=== PATIENT | female | born 1955 | race African-American/Black ===

== ENCOUNTER 2018-05-04 00:05 | Inpatient (IN) | payer MEDICARE ==
[2018-05-04] VITALS (7 sets, daily range): BP systolic 112–144; BP diastolic 63–80; Ht 165.1 cm; Wt 51.7 kg
[~2018-05-04] VITALS: Ht 165.1 cm; Wt 51.7 kg
[2018-05-04] MEDS ORDERED: TYLENOL W/CODEI1 TAB PO (04:50)
[2018-05-04] MEDS ORDERED: MYCOLOG CREAM15 GM TOPICAL (04:51)
[2018-05-04] MEDS ORDERED: ISOSORBIDE MONO30 M1 PO (04:51)
[2018-05-04] MEDS ORDERED: XANAX1 MG PO (04:53)
[2018-05-04] MEDS ORDERED: NORVASC10 MG PO (04:54)
[2018-05-04] MEDS ORDERED: PHENERGAN DM SYR5 ML PO (04:54)
[2018-05-04] MEDS ORDERED: LOPRESSOR25 MG PO (04:55)
[2018-05-04] MEDS ORDERED: CATAPRES0.2 MG PO (04:56)
[2018-05-04] MEDS ORDERED: SENNA8.6 MG PO (04:56)
[2018-05-04] MEDS ORDERED: MEGACE40 MG PO (04:57)
[2018-05-04] MEDS ORDERED: NORCO 10-325 TA1 TAB PO (04:58)
[2018-05-04 06:15] LABS: BASOPHILS 0.1 % (0-2); EOSINOPHILS 0.1 % (0-7); HEMATOCRIT 27.5 % (36.0-48.0); IMMATURE GRANULOCYTES 0.7 % (0-5); LYMPHOCYTES 2.2 % (15-50); MCH 29.4 pg (26.0-34.0); MCHC 32.7 g/dL (31.0-37.0); MCV 89.9 fL (80.0-100.0); MEAN PLATELET VOLUME 11.7 fL (7.4-10.4); MONOCYTES 3.8 % (2-11); NEUTROPHILS 93.1 % (40-80); PLATELET COUNT 193 10x3/uL (130-400); RBC 3.06 10x6/uL (4.00-5.40); RDW 17.3 % (11.5-14.5); WBC 8.9 10x3/uL (4.8-10.8)
[2018-05-04 07:57] LABS: ANION GAP 14.2 mmol/L (8-16); CALCIUM 9.1 mg/dL (8.5-10.1); CARBON DIOXIDE 25.4 mmol/L (21.0-32.0); CREATININE - SERUM 10.2 mg/dL (0.6-1.3)
[2018-05-04 08:03] LABS: POTASSIUM - SERUM 2.6 mmol/L (3.5-5.1)
[2018-05-04 15:22] LABS: APPEARANCE CLEAR (CLEAR); BILIRUBIN NEGATIVE (NEGATIVE); COLOR YELLOW (YELLOW); GLUCOSE NEGATIVE (NEGATIVE); KETONE NEGATIVE (NEGATIVE); NITRITE NEGATIVE (NEGATIVE); PROTEIN 1+ mg/dL (NEGATIVE); UROBILINOGEN NORMAL (NORMAL)
[2018-05-05 04:00] VITALS: BP 144/86
[2018-05-05 06:27] LABS: BASOPHILS 0.2 % (0-2); EOSINOPHILS 1.6 % (0-7); HEMATOCRIT 29.5 % (36.0-48.0); HEMOGLOBIN 9.6 g/dL (12-16); IMMATURE GRANULOCYTES 0.2 % (0-5); LYMPHOCYTES 8.5 % (15-50); MCH 28.8 pg (26.0-34.0); MCHC 32.5 g/dL (31.0-37.0); MCV 88.6 fL (80.0-100.0); MEAN PLATELET VOLUME 10.6 fL (7.4-10.4); MONOCYTES 9.2 % (2-11); NEUTROPHILS 80.3 % (40-80); RBC 3.33 10x6/uL (4.00-5.40); RDW 16.7 % (11.5-14.5)
[2018-05-05 06:38] LABS: PLATELET COUNT 149 10x3/uL (130-400); WBC 4.5 10x3/uL (4.8-10.8)
[2018-05-05 06:42] LABS: ALBUMIN 2.3 g/dL (3.4-5.0); ANION GAP 16.1 mmol/L (8-16); BILIRUBIN - TOTAL 0.33 mg/dL (0.2-1.3); CALCIUM 8.8 mg/dL (8.5-10.1); CARBON DIOXIDE 24.7 mmol/L (21.0-32.0); CREATININE - SERUM 11.3 mg/dL (0.6-1.3); PROTEIN - SERUM 6.7 g/dL (6.4-8.2)
[2018-05-05 07:06] LABS: POTASSIUM - SERUM 2.8 mmol/L (3.5-5.1)
[2018-05-05 09:03] VITALS: BP 150/83
[2018-05-05] MEDS ORDERED: HYDRALAZINE HCL50 MG PO (13:44)
[2018-05-05 14:36] LABS: CALCIUM 8.9 mg/dL (8.5-10.1); CARBON DIOXIDE 25.2 mmol/L (21.0-32.0); CREATININE - SERUM 8.4 mg/dL (0.6-1.3); POTASSIUM - SERUM 3.2 mmol/L (3.5-5.1)
[2018-05-05 14:55] LABS: HEMATOCRIT 32.1 % (36.0-48.0); HEMOGLOBIN 10.8 g/dL (12-16); LYMPHOCYTES 7.6 % (15-50); MCH 29.9 pg (26.0-34.0); MCHC 33.6 g/dL (31.0-37.0); MCV 88.9 fL (80.0-100.0); MEAN PLATELET VOLUME 9.8 fL (7.4-10.4); NEUTROPHILS 89.5 % (40-80); PLATELET COUNT 164 10x3/uL (130-400); RBC 3.61 10x6/uL (4.00-5.40); RDW 17.4 % (11.5-14.5); WBC 4.7 10x3/uL (4.8-10.8)
[2018-05-05 15:26] VITALS: BP 151/86
[2018-05-05 20:37] VITALS: BP 117/65
[2018-05-06 01:19] VITALS: BP 122/58
[2018-05-06 05:38] VITALS: BP 139/82
[2018-05-06 06:28] LABS: BASOPHILS 0 % (0-2); EOSINOPHILS 1.2 % (0-7); HEMATOCRIT 28.3 % (36.0-48.0); HEMOGLOBIN 9.3 g/dL (12-16); IMMATURE GRANULOCYTES 0.3 % (0-5); LYMPHOCYTES 12.3 % (15-50); MCHC 32.9 g/dL (31.0-37.0); MCV 88.2 fL (80.0-100.0); MEAN PLATELET VOLUME 10.4 fL (7.4-10.4); NEUTROPHILS 74.2 % (40-80); PLATELET COUNT 154 10x3/uL (130-400); RBC 3.21 10x6/uL (4.00-5.40); RDW 16.5 % (11.5-14.5); WBC 3.3 10x3/uL (4.8-10.8)
[2018-05-06 06:51] LABS: ANION GAP 14.2 mmol/L (8-16); CALCIUM 8.6 mg/dL (8.5-10.1); CARBON DIOXIDE 25.8 mmol/L (21.0-32.0); CREATININE - SERUM 9.3 mg/dL (0.6-1.3); VANCOMYCIN - RANDOM 16.8 ug/mL (10.0-20.0)
[2018-05-06 09:35] VITALS: BP 141/74
[2018-05-06 21:13] VITALS: BP 118/72
[2018-05-07 00:54] VITALS: BP 131/77
[2018-05-07 05:21] LABS: BASOPHILS 0.4 % (0-2); EOSINOPHILS 1.5 % (0-7); HEMATOCRIT 28.3 % (36.0-48.0); HEMOGLOBIN 9.3 g/dL (12-16); IMMATURE GRANULOCYTES 0.4 % (0-5); LYMPHOCYTES 24.5 % (15-50); MCHC 32.9 g/dL (31.0-37.0); MCV 88.2 fL (80.0-100.0); MEAN PLATELET VOLUME 10.9 fL (7.4-10.4); MONOCYTES 20.9 % (2-11); NEUTROPHILS 52.3 % (40-80); PLATELET COUNT 163 10x3/uL (130-400); RBC 3.21 10x6/uL (4.00-5.40); RDW 16.7 % (11.5-14.5); WBC 2.7 10x3/uL (4.8-10.8)
[2018-05-07 05:25] VITALS: BP 143/75
[2018-05-07 05:38] LABS: ANION GAP 16.6 mmol/L (8-16); CALCIUM 8.8 mg/dL (8.5-10.1); CARBON DIOXIDE 24.1 mmol/L (21.0-32.0); CREATININE - SERUM 8.4 mg/dL (0.6-1.3); MAGNESIUM - SERUM 1.7 mg/dL (1.8-2.4); PHOSPHOROUS 3.5 mg/dL (2.5-4.9); POTASSIUM - SERUM 3.7 mmol/L (3.5-5.1)
[2018-05-07] MEDS ORDERED: OMNICEF300 MG PO (07:29)
[2018-05-07 08:54] VITALS: BP 138/84
== END 2018-05-07 11:40 | disposition home or self-care (01) | DRG 871 ==
LOC: D.M2 00:05
PROVIDERS: Internal Medicine Nephrology
PROC: 5A1D70Z Performance of Urinary Filtration, Intermittent, Less than 6 Hours Per Day (ICD-10-PCS; principal; 2018-05-05)
DX: R78.81 Bacteremia (principal); N18.6 End stage renal disease; N39.0 Urinary tract infection, site not specified; I12.0 Hypertensive chronic kidney disease with stage 5 chronic kidney disease or end stage renal disease; Z99.2 Dependence on renal dialysis; J44.9 Chronic obstructive pulmonary disease, unspecified; K59.00 Constipation, unspecified; D63.1 Anemia in chronic kidney disease; E87.6 Hypokalemia; B95.61 Methicillin susceptible Staphylococcus aureus infection as the cause of diseases classified elsewhere

== ENCOUNTER 2019-06-21 08:49 | Inpatient (IN) | payer MEDICARE ==
[2019-06-21] VITALS (52 sets, daily range): BP systolic 99–162; BP diastolic 62–93; Ht 165.1 cm; Wt 54.5 kg
[~2019-06-21] VITALS: Ht 165.1 cm; Wt 54.5 kg
[~2019-06-21 08:49] MED LIST: CATAPRES0.2 MG PO; HYDRALAZINE HCL50 MG PO; ISOSORBIDE MONO30 M1 PO; LOPRESSOR25 MG PO; MEGACE40 MG PO; MYCOLOG CREAM15 GM TOPICAL; NORCO 10-325 TA1 TAB PO; NORVASC10 MG PO; OMNICEF300 MG PO; PHENERGAN DM SYR5 ML PO; SENNA8.6 MG PO; TYLENOL W/CODEI1 TAB PO; XANAX1 MG PO
[2019-06-21 09:23] LABS: ANION GAP 11.4 mmol/L (8-16); CARBON DIOXIDE 29.7 mmol/L (21.0-32.0); CREATININE - SERUM 6.2 mg/dL (0.6-1.3); POTASSIUM - SERUM 3.1 mmol/L (3.5-5.1)
[2019-06-21 09:29] LABS: ALBUMIN 2.9 g/dL (3.4-5.0); BASOPHILS 0.2 % (0-2); BILIRUBIN - TOTAL 0.67 mg/dL (0.2-1.3); EOSINOPHILS 0.2 % (0-7); HEMATOCRIT 29.4 % (36.0-48.0); HEMOGLOBIN 9.2 g/dL (12-16); IMMATURE GRANULOCYTES 0.2 % (0-5); LYMPHOCYTES 14.3 % (15-50); MCH 29.9 pg (26.0-34.0); MCHC 31.3 g/dL (31.0-37.0); MCV 95.5 fL (80.0-100.0); MEAN PLATELET VOLUME 10.3 fL (7.4-10.4); MONOCYTES 8.3 % (2-11); NEUTROPHILS 76.8 % (40-80); PLATELET COUNT 179 10x3/uL (130-400); PROTEIN - SERUM 7.6 g/dL (6.4-8.2); RBC 3.08 10x6/uL (4.00-5.40); RDW 16.3 % (11.5-14.5); WBC 4.3 10x3/uL (4.8-10.8)
--- NOTE | 2019-06-21 10:04 | NUR ---
PT RECIEVED TO UNIT VS STATED HR 66 NSR, O2 VIA RA RR 17 O2 SAT 98%. BP 161/[address] TERRELL NOTIFIED. ASSESSMENT COMPLETE PER FLOW SHEET REFER FOR COMPLETE FINDINGS. GIVEN BREAKFAST TRAY PER REQUEST. DENIES NEEDS WILL CONTINUE TO MONITOR
--- NOTE | 2019-06-21 11:30 | NUR ---
patient denies needs at this time. resting. awaiting dialysis. on phone. all belongings within reach. bed low and locked. side rails x2. call light within reach. educated bail bonding agent light button. educated on blood pressure. melissa salgado spoke with kathya salgado. dr humphreys aware of consult on patient. will continue to monitor. emili dunn at bedside. update given. orders given.
--- NOTE | 2019-06-21 11:56 | NUR ---
meds given per mar per emili dunn
--- NOTE | 2019-06-21 14:01 | NUR ---
ct done. back at this time
--- NOTE | 2019-06-21 17:17 | NUR ---
spoke to dr muniz on phone about transfer informed her of possible dnr but patient wanted to discuss with [facility]
--- NOTE | 2019-06-21 17:47 | NUR ---
spoke with faiza from [facility] requested a facesheet to [phone]
--- NOTE | 2019-06-21 18:42 | NUR ---
PATIENT GOT 3 L OFF IN DIALYSIS.
--- NOTE | 2019-06-21 18:44 | NUR ---
PATIENT SHOULD BE TRANSFERRED OUT IN THE AM TO [facility]
--- NOTE | 2019-06-21 19:00 | NUR ---
REPORT RECEIVED, PT AAOX4, ON ROOM AIR. LEFT ARM RESERVE, FISTULA IN LEFT UPPER ARM, PT ON ROOM AIR. RT FOREARM PIV INFUSING, SEE FLOWSHEET. ASSESSMENT COMPLETE, SEE FLOWSHEET. NO ACUTE DISTRESS NOTED, WILL CONTINUE TO MONITOR.
--- NOTE | 2019-06-21 19:39 | NUR ---
TRANSFER CENTER CALLED AND STATES THAT PATIENT IS ACCEPTED, BUT WILL NOT BE PLACED IN A BED UNTIL AM PER PHYSICIAN REQUEST.
--- NOTE | 2019-06-21 21:00 | NUR ---
PT RESTING IN BED, AAOX4. NO ACUTE DISTRESS NOTED.
--- NOTE | 2019-06-21 23:45 | NUR ---
PT REPORTS HEADACHE ADN DIZZINESS, RENAL PAGED, AWAITING CALL BACK.
[2019-06-22] VITALS (45 sets, daily range): BP systolic 97–134; BP diastolic 56–90
--- NOTE | 2019-06-22 00:05 | NUR ---
CALL RECEIVED FROM DR METZ, UPDATED ON STATUS, NEW ORDERS RECEIVED.
--- NOTE | 2019-06-22 01:00 | NUR ---
PT RESTING IN BED, NO ACUTE DISTRESS NOTED AT THIS TIME. WILL CONTINUE TO MONITOR.
--- NOTE | 2019-06-22 03:00 | NUR ---
PT RESTING IN BED, VITALS STABLE. WILL CONTINUE TO MONITOR.
[2019-06-22 04:13] LABS: BASOPHILS 0.3 % (0-2); EOSINOPHILS 1.5 % (0-7); HEMATOCRIT 30.3 % (36.0-48.0); HEMOGLOBIN 9.4 g/dL (12-16); IMMATURE GRANULOCYTES 0.3 % (0-5); LYMPHOCYTES 27.3 % (15-50); MCH 29.4 pg (26.0-34.0); MCV 94.7 fL (80.0-100.0); MEAN PLATELET VOLUME 10.2 fL (7.4-10.4); MONOCYTES 14.5 % (2-11); NEUTROPHILS 56.1 % (40-80); PLATELET COUNT 198 10x3/uL (130-400); WBC 3.4 10x3/uL (4.8-10.8)
[2019-06-22 04:42] LABS: ALBUMIN 2.8 g/dL (3.4-5.0); BILIRUBIN - TOTAL 0.57 mg/dL (0.2-1.3); CALCIUM 8.7 mg/dL (8.5-10.1); CARBON DIOXIDE 31.2 mmol/L (21.0-32.0); POTASSIUM - SERUM 3.2 mmol/L (3.5-5.1); PROTEIN - SERUM 7.5 g/dL (6.4-8.2)
[2019-06-22 04:43] LABS: CREATININE - SERUM 4.6 mg/dL (0.6-1.3)
--- NOTE | 2019-06-22 05:00 | NUR ---
SPOKE WITH TRANSFER CENTER, INFORMED THAT PT WILL BE ASSIGNED A BED AT [facility] TODAY PER THE ACCEPTING PHYSICIAN.
--- NOTE | 2019-06-22 05:05 | NUR ---
PIV IN RT FOREARM DCED, NEW PIV INITIATED IN RT FOREARM. BLOOD PRESSURE CUFF REMOVED WHILE PLACING IV.
--- NOTE | 2019-06-22 07:15 | NUR ---
REPORT RECIEVED. ASSESSMENT COMPLETE PER FLOW SHEET. VSS. NO NEW CHANGES PT RESTING COMFORTABLY WILL CONTINUE TO MONITOR
--- NOTE | 2019-06-22 08:00 | NUR ---
GIVEN BREAKFAST TRAY. ATE 50%
--- NOTE | 2019-06-22 08:10 | NUR ---
[facility] CALLED GIVEN UPDATE.
[2019-06-22] MEDS ORDERED: PROCARDIA XL PO (08:19)
[2019-06-22] MEDS ORDERED: PROTONIX40 MG PO (08:19)
--- NOTE | 2019-06-22 08:20 | NUR ---
DR AMBROCIO AT BEDSIDE NO NEW ORDERS AT THIS TIME.
--- NOTE | 2019-06-22 11:00 | NUR ---
REASSESSMENT COMPLETE PER FLOW SHEET. VSS. PT RESTING COMFORTALBY WILL CONTINUE TO MONITOR
--- NOTE | 2019-06-22 13:10 | NUR ---
COMPLETE BB LINEN CHANGE ADM. DENIES NEEDS WILL CONTINUE TO MONITOR
--- NOTE | 2019-06-22 15:00 | NUR ---
REASSESSMENT COMPLETE PER FLOW SHEET. VSS. PT RESTING COMFORTABLY WILL CONTINUE TO MONITOR
--- NOTE | 2019-06-22 20:25 | NUR ---
[facility] HERE, PT TRANSFERED TO [facility] WITHOUT DIFFIC. WILL TRANSFERED VIA AMBULANTION, TO [facility], RM H408.
--- NOTE | 2019-06-22 21:52 | MORECARE ---
CASE MANAGEMENT DISCHARGE SUMMARY PATIENT: GABINO HACKETT UNIT: [id number] ADM DATE: 06/21/19 AGE: 64 : 51 SEX: F ROOM/BED: D.2307 AUTHOR: CHANEL PIERCE PHYSICIAN: REFERRING PHYSICIAN: ISRRAEL REAL DO DATE OF SERVICE: 06/22/19 Discharge Plan Patient Name: GABINO HACKETT Facility: [facility]:[place] : 1955 Planned Disposition: Acute Care Hospital Anticipated Discharge Date: Discharge Date: 06/22/2019 Expected LOS: Initial Reviewer: [email or web address] Initial Review Date: 06/21/2019 Generated: 06/22/19 10:51 pm DCPIA - Discharge Planning Initial Assessment Updated by [email or web address]: Yarelis Das on 06/22/19 9:49 pm * Is the patient Alert and Oriented? Yes * How many steps to enter\exit or inside your home? * PCP [facility] * [facility] * Preadmission Environment Home with Family * ADLs Independent * Other Equipment W/C, CANE, * List name and contact numbers for known caregivers / representatives who currently or will assist patient after discharge: BETTY GARRETT - [facility] [phone] * Verbal permission to speak to the caregivers and representatives has been obtained from the patient. Yes * Community resources currently utilized None * Please name any agencies selected above. [facility] @1030 * Additional services required to return to the preadmission environment? No * Can the patient safely return to the preadmission environment? Yes * Has this patient been hospitalized within the prior 30 days at any hospital? No Patient Name: GABINO HACKETT Page 63960 at 2152 All edits/amendments must be made on the electronic document DICTATION DATE: 06/22/192150 COMMUNICATIONS ENGINEERING TECHNICIAN: KALINA 06/22/192150 RPT#: [id number] DC DATE:06/22/19 STATUS: DIS IN [facility] [address] [place] [address] END OF REPORT
--- NOTE | 2019-06-22 21:59 | MORECARE ---
CASE MANAGEMENT DISCHARGE SUMMARY PATIENT: GABINO HACKETT UNIT: [id number] ADM DATE: 06/21/19 AGE: 64 : 51 SEX: F ROOM/BED: D.2307 AUTHOR: STAN,DOC PHYSICIAN: REFERRING PHYSICIAN: ISRRAEL REAL DO DATE OF SERVICE: 06/22/19 Discharge Plan Patient Name: GABINO HACKETT Facility: [facility]:[place] : 1955 Planned Disposition: Acute [facility] Anticipated Discharge Date: Discharge Date: 06/22/2019 Expected LOS: Initial Reviewer: [email or web address] Initial Review Date: 06/21/2019 Generated: 06/22/19 10:59 pm Comments DCP- Discharge Planning Updated by [email or web address]: Yarelis Das on 06/22/19 8:[address] Patient Name: GABINO HACKETT Admission Status: ER Accout number: [id number] Admission Date: 06-21-2019 : 1955 Admission Diagnosis: Attending: FLOYD Current LOS: 1 Anticipated DC Date: Planned Disposition: [facility] Primary Insurance: MEDICARE A & B Discharge Planning Comments: CM met with patient to complete initial dc planning assessment. CM educated patient on the CM role and verbal consent given by patient to complete assessment. Patient lives at home with her where she is independent with her care. At discharge patient plans to return home and feels this is a safe discharge. CM discussed availability of home health, rehab services, and medical equipment. Patient denied known discharge needs at this time. CM will continue to follow and will assist as needed with dc plans/needs. Patient is awaiting a bed at [facility] for cardiothoracic surgery. Guest Service Representative: Yarelis Das DCPIA - Discharge Planning Initial Assessment Updated by [email or web address]: Yarelis Das on 06/22/19 9:49 pm * Is the patient Alert and Oriented? Yes * How many steps to enter\exit or inside your home? * PCP [facility] * [facility]acy [facility] * Preadmission Environment Home with Family * ADLs Independent * Other Equipment W/C, CANE, * List name and contact numbers for known caregivers / representatives who currently or will assist patient after discharge: BETTY GARRETT - [facility]- [phone] * Verbal permission to speak to the caregivers and representatives has been obtained from the patient. Yes * Community resources currently utilized None * Please name any agencies selected above. [facility] @[phone] * Additional services required to return to the preadmission environment? No * Can the patient safely return to the preadmission environment? Yes * Has this patient been hospitalized within the prior 30 days at any hospital? No Last DP export: 06/22/19 8:52 Patient Name: GABINO HACKETT Page [id number] at 2156 All edits/amendments must be made on the electronic document DICTATION DATE: 06/22/192158 INTERNAL MEDICINE SPECIALIST: KALINA 06/22/192158 RPT#: [id number] DC DATE:06/22/19 STATUS: DIS IN [facility] [address] [place] [address] END OF REPORT
== END 2019-06-22 20:25 | disposition short-term general hospital (02) | DRG 299 ==
LOC: D.ER 08:49 → D.ICU 09:51
PROVIDERS: Family Medicine; ADMIT Internal Medicine; ATTEND Internal Medicine
PROC: 5A1D70Z Performance of Urinary Filtration, Intermittent, Less than 6 Hours Per Day (ICD-10-PCS; principal; 2019-06-21)
DX: I71.2 Thoracic aortic aneurysm, without rupture (principal); N18.6 End stage renal disease; I16.9 Hypertensive crisis, unspecified; I69.354 Hemiplegia and hemiparesis following cerebral infarction affecting left non-dominant side; I12.0 Hypertensive chronic kidney disease with stage 5 chronic kidney disease or end stage renal disease; J44.9 Chronic obstructive pulmonary disease, unspecified; Z99.2 Dependence on renal dialysis; Z87.891 Personal history of nicotine dependence